=== PATIENT | female | born 1945 | race Caucasian/White ===

== ENCOUNTER → 2021-08-05 | Day surgery (SDC) | payer MEDICARE ==
[~2021-08-05] MED LIST: ARICEPT5 MG PO; CIPRO500 MG PO; ESTRADIOL PO; FENTANYL CITRATE/PF 100MCG/2 ML INJ ONE; FOSAMAX INJ; GABAPENTIN300 MG PO; HYDROCODON-ACE1 EA11 PO; IOPAMIDOL 200 MG/ML 20 ML VIAL IT ONE; LIDOCAINE HCL 1% 30ML-PF VIAL ONE; LIDOCAINE HCL 2% LOCAL INJ 5 ML SDV VIAL INJ ONE; LOSARTAN POTASS25 MG PO; METFORMIN HCL500 MG PO; MIDAZOLAM HCL 2 MG/2 ML VIAL ONE; NAMENDA10 MG PO; POVIDONE IODINE 0.05% 0.05 % ML PO ONE; TRIAMCINOLONE ACET 40 MG/ML VIAL ONE; [UNRECOGNIZED DRUG - OTHER] PO
[2021-08-05 08:28] VITALS: BP 129/62
== END | disposition home or self-care (01) ==
LOC: OR 06:14
PROVIDERS: ATTEND Physical Medicine & Rehabilitation Pain Medicine
DX: M75.51 Bursitis of right shoulder (principal); M19.011 Primary osteoarthritis, right shoulder; M54.16 Radiculopathy, lumbar region; M96.1 Postlaminectomy syndrome, not elsewhere classified; M46.1 Sacroiliitis, not elsewhere classified; M70.62 Trochanteric bursitis, left hip; M70.61 Trochanteric bursitis, right hip; M48.061 Spinal stenosis, lumbar region without neurogenic claudication; Z98.1 Arthrodesis status; E11.9 Type 2 diabetes mellitus without complications; I10 Essential (primary) hypertension; R00.1 Bradycardia, unspecified; Z88.6 Allergy status to analgesic agent; Z01.812 Encounter for preprocedural laboratory examination; Z20.822 Contact with and (suspected) exposure to COVID-19; Z79.84 Long term (current) use of oral hypoglycemic drugs; Z79.899 Other long term (current) drug therapy
CPT/HCPCS: 20610; 36415; 77002; 82948; J2001 ×2; J2250; J3010; J3301; Q9967; U0002; 77003

== ENCOUNTER → 2021-09-09 | Day surgery (SDC) | payer MEDICARE ==
[2021-09-07 12:15] LABS: BASOPHILS # (AUTO) 0.1 (0.0-0.1); BASOPHILS % 1.1 % (0.0-1.0); EOSINOPHILS # (AUTO) 0.1 (0.0-0.4); EOSINOPHILS % 1.1 % (0.0-6.0); HEMATOCRIT 39.9 % (34.2-44.1); HEMOGLOBIN 12.2 g/dL (12.0-16.0); LYMPHOCYTES # (AUTO) 1.1 (1.0-3.2); MEAN CORPUSCULAR HGB CONC 30.6 g/dL (31-35); MEAN CORPUSCULAR VOLUME 94.8 fL (81-99); MONOCYTES # (AUTO) 0.5 (0.2-0.8); MONOCYTES % 8.6 % (4.4-11.3); NEUTROPHILS # (AUTO) 3.7 (2.1-6.9); PLATELET COUNT 277 x10e3/uL (140-360); RED BLOOD COUNT 4.21 x10e6/uL (3.6-5.1); RED CELL DISTRIBUTION WIDTH 14.7 % (11.7-14.4)
[~2021-09-09] MED LIST changes: +AMLODIPINE BESYL5 MG PO; +BUPIVACAINE 0.25% 30ML SDV ONE; +DEXAMETHASONE SOD PHOS 10 MG/1 ML VIAL ONE; +HYDROCHLOROTHIA25 MG PO; +IRBESARTAN150 MG PO; -LIDOCAINE HCL 2% LOCAL INJ 5 ML SDV VIAL INJ ONE; +MAGNESIUM PO; +MELATONIN3 MG PO; +METHOCARBAMOL750 MG PO; +MIRTAZAPINE7.5 MG PO; +MYRBETRIQ50 MG PO; +PIOGLITAZONE30 MG PO; +POTASSIUM PO; +PROPOFOL IV EMULSION 10 MG/ML 20 ML VIAL ONE; -TRIAMCINOLONE ACET 40 MG/ML VIAL ONE; +VITAMIN B122500 MCG PO
[2021-09-09 08:30] VITALS: BP 105/86
== END | disposition home or self-care (01) ==
LOC: OR 07:29
PROVIDERS: ATTEND Physical Medicine & Rehabilitation Pain Medicine
DX: M54.16 Radiculopathy, lumbar region (principal); M96.1 Postlaminectomy syndrome, not elsewhere classified; M48.061 Spinal stenosis, lumbar region without neurogenic claudication; Z98.1 Arthrodesis status; M46.1 Sacroiliitis, not elsewhere classified; G89.4 Chronic pain syndrome; M70.62 Trochanteric bursitis, left hip; M70.61 Trochanteric bursitis, right hip; M25.512 Pain in left shoulder; M25.511 Pain in right shoulder; E11.9 Type 2 diabetes mellitus without complications; I25.10 Atherosclerotic heart disease of native coronary artery without angina pectoris; I10 Essential (primary) hypertension; F41.9 Anxiety disorder, unspecified; Z88.6 Allergy status to analgesic agent; Z01.812 Encounter for preprocedural laboratory examination; Z20.822 Contact with and (suspected) exposure to COVID-19; Z79.84 Long term (current) use of oral hypoglycemic drugs; Z79.899 Other long term (current) drug therapy
CPT/HCPCS: 36415 ×2; 64483; 64484 ×2; 77003; 82948; 85025; J1100; J2001; J2250; J2704; J3010; Q9967; U0002

== ENCOUNTER → 2021-11-11 | Day surgery (SDC) | payer MEDICARE ==
[2021-11-09 10:37] LABS: BASOPHILS # (AUTO) 0.1 (0.0-0.1); BASOPHILS % 1.1 % (0.0-1.0); EOSINOPHILS # (AUTO) 0.1 (0.0-0.4); EOSINOPHILS % 0.9 % (0.0-6.0); HEMOGLOBIN 11.5 g/dL (12.0-16.0); LYMPHOCYTES % 17.7 % (18.0-39.1); MEAN CORPUSCULAR HEMOGLOBIN 28.1 pg (28-32); MEAN CORPUSCULAR HGB CONC 30.3 g/dL (31-35); MEAN CORPUSCULAR VOLUME 92.9 fL (81-99); MONOCYTES # (AUTO) 0.4 (0.2-0.8); MONOCYTES % 8.1 % (4.4-11.3); NEUTROPHILS # (AUTO) 3.9 (2.1-6.9); PLATELET COUNT 229 x10e3/uL (140-360); RED BLOOD COUNT 4.09 x10e6/uL (3.6-5.1); RED CELL DISTRIBUTION WIDTH 13.8 % (11.7-14.4)
[~2021-11-11] MED LIST changes: -DEXAMETHASONE SOD PHOS 10 MG/1 ML VIAL ONE; +METHYLPREDNISOLONE ACETATE 80 MG/ML VIAL ONE
[2021-11-11 07:40] VITALS: BP 126/72
== END | disposition home or self-care (01) ==
LOC: OR 07:38
PROVIDERS: ATTEND Physical Medicine & Rehabilitation Pain Medicine
DX: M54.16 Radiculopathy, lumbar region (principal); M96.1 Postlaminectomy syndrome, not elsewhere classified; M46.1 Sacroiliitis, not elsewhere classified; M25.512 Pain in left shoulder; M25.511 Pain in right shoulder; M70.62 Trochanteric bursitis, left hip; M70.61 Trochanteric bursitis, right hip; M48.061 Spinal stenosis, lumbar region without neurogenic claudication; M47.816 Spondylosis without myelopathy or radiculopathy, lumbar region; Z98.1 Arthrodesis status; E11.9 Type 2 diabetes mellitus without complications; I25.10 Atherosclerotic heart disease of native coronary artery without angina pectoris; I10 Essential (primary) hypertension; I49.1 Atrial premature depolarization; F41.9 Anxiety disorder, unspecified; Z88.6 Allergy status to analgesic agent; Z01.810 Encounter for preprocedural cardiovascular examination; Z01.812 Encounter for preprocedural laboratory examination; Z79.82 Long term (current) use of aspirin; Z79.899 Other long term (current) drug therapy; Z79.84 Long term (current) use of oral hypoglycemic drugs; Z86.16 Personal history of COVID-19
CPT/HCPCS: 36415 ×2; 64483; 82948; 85025; 93005; J1040; J2001; J2250; J2704; J3010; Q9967; 77003

== ENCOUNTER → 2022-02-03 | Day surgery (SDC) | payer MEDICARE ==
[2022-02-01 13:03] LABS: BASOPHILS % 0.7 % (0.0-1.0); EOSINOPHILS # (AUTO) 0.3 (0.0-0.4); EOSINOPHILS % 5.2 % (0.0-6.0); HEMATOCRIT 37.9 % (34.2-44.1); HEMOGLOBIN 11.4 g/dL (12.0-16.0); LYMPHOCYTES # (AUTO) 0.7 (1.0-3.2); LYMPHOCYTES % 11.7 % (18.0-39.1); MEAN CORPUSCULAR HEMOGLOBIN 28.4 pg (28-32); MEAN CORPUSCULAR HGB CONC 30.1 g/dL (31-35); MEAN CORPUSCULAR VOLUME 94.5 fL (81-99); MONOCYTES # (AUTO) 0.7 (0.2-0.8); MONOCYTES % 10.9 % (4.4-11.3); NEUTROPHILS # (AUTO) 4.3 (2.1-6.9); NEUTROPHILS % 71.3 % (38.7-80.0); PLATELET COUNT 234 x10e3/uL (140-360); RED BLOOD COUNT 4.01 x10e6/uL (3.6-5.1); RED CELL DISTRIBUTION WIDTH 16.3 % (11.7-14.4)
[~2022-02-03] MED LIST changes: +BIOTIN2500 MCG PO; +CALCIUM PO; +DEXAMETHASONE SOD PHOS 10 MG/1 ML VIAL ONE; -FENTANYL CITRATE/PF 100MCG/2 ML INJ ONE; +KETAMINE HCL INJ 50 MG/ML 10 ML VIAL ONE; +LIDOCAINE HCL 2% LOCAL INJ 5 ML SDV VIAL INJ ONE; -METHYLPREDNISOLONE ACETATE 80 MG/ML VIAL ONE; -MIDAZOLAM HCL 2 MG/2 ML VIAL ONE; +RYBELSUS7 MG PO; +SODIUM CHLORIDE 0.9% INJ 10 ML VIAL ONE; +VITAMIN C1000 MG PO; +VITAMIN D3125 MCG PO
[2022-02-03 07:20] VITALS: BP 142/62
== END | disposition home or self-care (01) ==
LOC: OR 06:25
PROVIDERS: ATTEND Physical Medicine & Rehabilitation Pain Medicine
DX: M54.16 Radiculopathy, lumbar region (principal); Z88.6 Allergy status to analgesic agent; Z98.1 Arthrodesis status; M96.1 Postlaminectomy syndrome, not elsewhere classified; M46.1 Sacroiliitis, not elsewhere classified; G89.4 Chronic pain syndrome; M70.62 Trochanteric bursitis, left hip; M70.61 Trochanteric bursitis, right hip; M48.061 Spinal stenosis, lumbar region without neurogenic claudication; M25.512 Pain in left shoulder; M25.511 Pain in right shoulder; I10 Essential (primary) hypertension; E11.9 Type 2 diabetes mellitus without complications; Z01.812 Encounter for preprocedural laboratory examination; Z79.84 Long term (current) use of oral hypoglycemic drugs
CPT/HCPCS: 36415 ×2; 62323; 77002; 82948; 85025; J1100; J2001 ×2; J2704; Q9967